=== PATIENT | female | born 2000 | race Two or more races ===

== ENCOUNTER 2024-04-02 08:22 | Inpatient (IN) | payer MEDICAID, OTHER ==
[~2024-04-02] VITALS: Ht 162.6 cm; Wt 93.5 kg
[2024-04-02 09:51] LABS: BASOPHILS % (AUTO) 0.5 % (0.0-2.0); EOSINOPHILS % (AUTO) 0.4 % (1.0-6.0); HEMATOCRIT 39.4 % (36-46); LYMPHOCYTES # (AUTO) 2.6 K/uL (1.0-4.8); LYMPHOCYTES % (AUTO) 28.2 % (22.0-44.0); MEAN CORPUSCULAR HEMOGLOBIN 26.9 pg (26.0-34.0); MEAN CORPUSCULAR HGB CONC 32.9 G/dL (31.0-37.0); MEAN CORPUSCULAR VOLUME 82 fL (80-100); MONOCYTES # (AUTO) 0.5 K/uL (0.1-1.0); MONOCYTES % (AUTO) 5.1 % (2.0-9.0); NEUTROPHILS # (AUTO) 6.1 K/uL (1.8-7.7); NEUTROPHILS % (AUTO) 65.8 % (40.0-70.0); PLATELET COUNT (AUTO) 281 K/uL (150-450); RED BLOOD CELL COUNT(AUTO) 4.81 MIL/uL (4.00-5.20); RED CELL DISTRIBUTION WIDTH 13.3 % (11.5-14.5); WHITE BLOOD COUNT (AUTO) 9.3 K/uL (4.5-11.0)
[2024-04-02 10:01] LABS: COVID AG,FIA SOURCE NPH
[2024-04-02 10:07] LABS: APPEARANCE,URINE CLEAR (CLEAR); BILIRUBIN,URINE NEGATIVE (NEGATIVE); COLOR,URINE LIGHT YELLOW (YELLOW); GLUCOSE, URINE (UA) NEGATIVE (NEGATIVE); KETONES,URINE NEGATIVE (NEGATIVE); LEUKOCYTE ESTERASE ,URINE NEGATIVE (NEGATIVE); NITRATE,URINE NEGATIVE (NEGATIVE); OCCULT BLOOD,URINE NEGATIVE (NEGATIVE); PROTEIN,URINE NEGATIVE (NEGATIVE); SPECIFIC GRAVITIY, URINE 1.013 (1.003-1.030); UROBILINOGEN,URINE <=1.0 mg/dL (<=1.0)
[2024-04-02 10:14] LABS: ALCOHOL, URINE DRUG SCREEN NEGATIVE (NEGATIVE); AMPHET/METH SCREEN,URINE NEGATIVE (NEGATIVE); BARBITURATE SCREEN, URINE NEGATIVE (NEGATIVE); BENZODIAZEPINES SCREEN,URINE NEGATIVE (NEGATIVE); CANNABINOID SCREEN,URINE POSITIVE (NEGATIVE); COCAINE SCREEN,URINE NEGATIVE (NEGATIVE); METHADONE SCREEN, URINE NEGATIVE (NEGATIVE); OPIATE SCREEN,URINE NEGATIVE (NEGATIVE); PHENCYCLIDINE SCREEN,URINE NEGATIVE (NEGATIVE)
[2024-04-02 10:14] LABS: ALCOHOL, BLOOD (SERUM) < 3 mg/dL (0-10)
[2024-04-02 10:30] LABS: ANION GAP 11 mmol/L (8-16); CALCIUM, TOTAL 9.1 mg/dL (8.8-10.5); CARBON DIOXIDE 24 mmol/L (22-29); CHLORIDE 102 mmol/L (98-107); CREATININE 0.82 mg/dL (0.60-1.30); GLOMERULAR FILTR. RATE CALC > 60 mL/min (>60); GLUCOSE,RANDOM 98 mg/dL (70-110); POTASSIUM 3.7 mmol/L (3.5-5.1); SODIUM SERUM 137 mmol/L (136-145); UREA NITROGEN, BLOOD 10 mg/dL (7-18)
[2024-04-02] MEDS ORDERED: LOPERAMIDE HCL 2 MG CAPSULE PO PRN (10:30)
[2024-04-02] MEDS ORDERED: HydrOXYzine PAMOATE 50 MG CAPSULE PO PRN (10:30)
[2024-04-02] MEDS ORDERED: GuaiFENesin/D-METHORPHAN [SUGAR-FREE] 200-20MG/10 ML SYRUP UDCUP PO PRN (10:30)
[2024-04-02] MEDS ORDERED: TUBERCULIN, PURIFIED PROTEIN DERIVATIVE 5 TU/0.1 ML SYRINGE ID ONE (10:30)
[2024-04-02] MEDS ORDERED: MELATONIN 5 MG TABLET PO PRN (10:30)
[2024-04-02] MEDS ORDERED: OLANZapine 5 MG RAPDIS TABLET PO PRN (10:30)
[2024-04-02] MEDS ORDERED: MAG HYDROX/ALUMINUM HYD/SIMETH ES 30 ML SUSPENSION UDCUP PO PRN (10:30)
[2024-04-02] MEDS ORDERED: PROMETHAZINE HCL 25 MG TABLET PO PRN (10:30)
[2024-04-02] MEDS ORDERED: MAGNESIUM HYDROXIDE SUSPENSION 30 ML UDCUP PO PRN (10:30)
[2024-04-02 10:35] LABS: SARS-COV2 (COVID) ANTIGEN,FIA Negative (Negative)
[2024-04-02 10:41] LABS: HCG,QUANTITATIVE 1 mIU/mL (0-6)
[2024-04-02] MEDS: LORazepam 2 MG/ML VIAL IM ONE (10:56)
[2024-04-02] MEDS: HALOPERIDOL LACTATE 5 MG/ML VIAL IM ONE (10:57)
[2024-04-02] MEDS: DiphenhydrAMINE HCL 50 MG/ML VIAL IM ONE (10:57)
[2024-04-02 16:38] VITALS: BP 148/105; PULSE 89; RESP 18; TEMP 97.5; O2SAT 98
[2024-04-02] MEDS: THIAMINE 100 MG TABLET PO SCH (18:05)
[2024-04-02] MEDS ORDERED: CloNIDine HCL 0.1 MG TABLET PO PRN (20:45)
[2024-04-02] MEDS: OLANZapine 5 MG RAPDIS TABLET PO SCH (21:05)
[2024-04-02 21:46] VITALS: BP 141/83; PULSE 92; RESP 18; TEMP 97.4; O2SAT 97
[2024-04-02] MEDS: ZOLPIDEM TARTRATE 10 MG TABLET PO PRN (21:57)
[2024-04-03 07:42] LABS: BASOPHILS % (AUTO) 0.4 % (0.0-2.0); HEMATOCRIT 44.1 % (36-46); HEMOGLOBIN 14.3 g/dL (12.0-16.0); LYMPHOCYTES # (AUTO) 2.9 K/uL (1.0-4.8); LYMPHOCYTES % (AUTO) 40.2 % (22.0-44.0); MEAN CORPUSCULAR HGB CONC 32.5 G/dL (31.0-37.0); MEAN CORPUSCULAR VOLUME 83 fL (80-100); MONOCYTES # (AUTO) 0.6 K/uL (0.1-1.0); MONOCYTES % (AUTO) 8.5 % (2.0-9.0); NEUTROPHILS # (AUTO) 3.5 K/uL (1.8-7.7); NEUTROPHILS % (AUTO) 47.9 % (40.0-70.0); PLATELET COUNT (AUTO) 276 K/uL (150-450); RED CELL DISTRIBUTION WIDTH 13.4 % (11.5-14.5); WHITE BLOOD COUNT (AUTO) 7.2 K/uL (4.5-11.0)
[2024-04-03 07:51] LABS: HEMOGLOBIN A1C 5.4 % (3.8-5.6)
[2024-04-03 08:11] LABS: FREE T4 (FREE THYROXINE) 1.35 ng/dL (0.76-1.46); THYROID STIMULATING HORMONE 4.67 uIU/mL (0.36-3.74)
[2024-04-03 08:41] VITALS: BP 133/93; PULSE 99; RESP 18; TEMP 97.5; O2SAT 97
[2024-04-03] MEDS: OMEGA-3/DHA/EPA/FISH OIL 1,000 MG CAPSULE PO SCH (09:16)
[2024-04-03] MEDS: MULTIVITAMINS WITH MINERALS, THERAPEUTIC TABLET PO SCH (09:16)
[2024-04-03] MEDS: NALTREXONE HCL 50 MG TABLET PO SCH (09:16)
[2024-04-03] MEDS: FOLIC ACID 1 MG TABLET PO SCH (09:16)
[2024-04-03] MEDS: FLUoxetine HCL 20 MG CAPSULE PO SCH (09:16)
[2024-04-03] MEDS: ACETAMINOPHEN 325 MG TABLET PO PRN (09:21)
[2024-04-03 20:59] VITALS: BP 142/99; PULSE 83; RESP 18; TEMP 97.5; O2SAT 97
[2024-04-04] MEDS: LORazepam 2 MG TABLET PO PRN (04:06)
[2024-04-04 09:27] VITALS: BP 125/97; PULSE 98; RESP 18; TEMP 98; O2SAT 96
[2024-04-04] MEDS ORDERED: LORazepam 2 MG/ML VIAL ONE (18:00)
[2024-04-04] MEDS: LORazepam 2 MG/ML VIAL IM ONE (18:10)
[2024-04-04] MEDS: DiphenhydrAMINE HCL 50 MG/ML VIAL IM ONE (18:10)
[2024-04-04] MEDS: HALOPERIDOL LACTATE 5 MG/ML VIAL IM ONE (18:11)
[2024-04-04] MEDS: OLANZapine 10 MG RAPDIS TABLET PO SCH (20:21)
[2024-04-04 22:36] VITALS: RESP 18
[2024-04-05 08:40] VITALS: BP 138/92; PULSE 85; RESP 17; TEMP 96.8; O2SAT 99
[2024-04-05] MEDS ORDERED: OLAN10TA26 PO (17:43)
[2024-04-05] MEDS ORDERED: OMEG100033 PO (17:43)
[2024-04-05] MEDS ORDERED: FLUO-418 PO (17:43)
[2024-04-05] MEDS ORDERED: MELA5TAB40 PO (17:43)
[2024-04-05] MEDS ORDERED: NALT50TA6 PO (17:45)
[2024-04-05 20:54] VITALS: BP 134/87; PULSE 96; RESP 18; TEMP 97; O2SAT 98
[2024-04-06 09:27] VITALS: BP 112/68; PULSE 66; RESP 16; TEMP 97.6; O2SAT 98
[2024-04-06] MEDS: FLUoxetine HCL 20 MG CAPSULE PO SCH (09:27)
== END 2024-04-06 17:30 | disposition home or self-care (01) | DRG 750 ==
LOC: EMS 08:22 → 3EI 14:52
PROVIDERS: ADMIT Psychiatry & Neurology Psychiatry; ATTEND Psychiatry & Neurology Psychiatry
PROC: GZHZZZZ Group Psychotherapy (ICD-10-PCS; principal; 2024-04-03)
PROC: GZ58ZZZ Individual Psychotherapy, Cognitive-Behavioral (ICD-10-PCS; 2024-04-03)
PROC: GZ56ZZZ Individual Psychotherapy, Supportive (ICD-10-PCS; 2024-04-03)
DX: F25.0 Schizoaffective disorder, bipolar type (principal); F22 Delusional disorders; Z91.148 Patient's other noncompliance with medication regimen for other reason; F12.10 Cannabis abuse, uncomplicated; Z20.822 Contact with and (suspected) exposure to COVID-19
CPT/HCPCS: 80048; 80061; 80307; 81003; 83036; 84439; 84443; 84702; 85025; 86592; 99285; G0480; J1200; J1630; J2060